=== PATIENT | female | born 1960 | race African-American/Black ===

== ENCOUNTER 2024-12-19 23:55 | Emergency (ER) | payer OTHER ==
[~2024-12-19] VITALS: Ht 162.6 cm; Wt 76.0 kg
[2024-12-19 23:57] VITALS: O2SAT 100
[2024-12-20 01:37] LABS: BASOPHILS % 0.7 % (0.0-2.0); EOSINOPHILS % 0.6 % (0.0-5.0); HEMATOCRIT. 39.5 % (36.0-48.0); HEMOGLOBIN. 13.0 g/dL (12.0-16.0); LYMPHOCYTES % 20.4 % (20.0-50.0); MEAN PLATELET VOLUME 8.4 fl (7.4-10.4); MONOCYTES % 6.3 % (2.0-8.0); NEUTROPHILS % 72.0 % (40.0-76.0); PLATELET 298 x1000/uL (130-400); RED BLOOD CELL COUNT 4.90 mill/uL (4.2-5.4); RED CELL DISTRIBUTION WIDTH 16.3 % (11.6-14.6)
[2024-12-20 01:50] LABS: INR 1.0
[2024-12-20 01:54] LABS: CREATININE 0.9 mg/dL (0.6-1.0); UREA NITROGEN BLOOD 15 mg/dL (9-23)
[2024-12-20 01:55] LABS: ETHANOL BLOOD < 10 mg/dL (<10); TROPONIN I HIGH SENSITIVITY < 4 ng/L (3.0-34)
[2024-12-20 01:56] LABS: ASPARTATE AMINOTRANSFERASE 26 IU/L (<34); BILIRUBIN DIRECT 0.2 mg/dL (<=3.0)
[2024-12-20 01:57] LABS: BILIRUBIN TOTAL 0.8 mg/dL (0.1-1.0); PROTEIN TOTAL 7.3 g/dL (6.0-8.3)
[2024-12-20] MEDS: VISCOUS LIDOCAINE 2% 15 ML UDC MM NR (03:17)
[2024-12-20] MEDS: MAGNESIUM/ALUMINUM HYDROXIDE/SIMETHICONE 30ML UDC PO NR (03:17)
[2024-12-20] MEDS: ACETAMINOPHEN 325MG TABLET PO NR (03:18)
[2024-12-20 05:00] VITALS: BP 168/64; PULSE 78; RESP 16; TEMP 36.6; O2SAT 100
== END 2024-12-20 05:14 | disposition short-term general hospital (02) ==
LOC: ER 23:55 → EDBEDREQ 12-20 03:35 → EDBEDREQTM 12-20 03:35 → ER 12-20 05:14
DX: K80.20 Calculus of gallbladder without cholecystitis without obstruction (principal); I11.0 Hypertensive heart disease with heart failure; I50.9 Heart failure, unspecified; E11.9 Type 2 diabetes mellitus without complications; E78.00 Pure hypercholesterolemia, unspecified
CPT/HCPCS: 36415; 71045; 76705; 80048; 80076; 80320; 83880; 84484; 85025; 93005; 99285; G0480